=== PATIENT | male | born 1980 | race Hispanic/Latino ===

== ENCOUNTER 2021-09-14 15:19 | Inpatient (IN) | payer OTHER, BC ==
[2021-09-14] MEDS ORDERED: Promethazine HCl 25 MG/ML VIAL IM PRN (16:53)
[2021-09-14] MEDS ORDERED: hydrALAZINE 20 MG/ML VIAL SLOW IVP PRN (16:53)
[2021-09-14 18:41] VITALS: BMI 44.9
[2021-09-14] MEDS ORDERED: traMADol HCl 50 MG TAB PO PRN (20:24)
[2021-09-14] MEDS ORDERED: Ketorolac Tromethamine 30 MG/ML VIAL IVP SCH (20:30)
[2021-09-14] MEDS ORDERED: Fentanyl 100 MCG/2 ML VIAL SLOW IVP SCH (20:30)
[2021-09-14] MEDS ORDERED: Pregabalin 50 MG CAP PO SCH (21:00)
[2021-09-14] MEDS ORDERED: Gabapentin 300 MG CAP PO SCH (21:00)
[2021-09-14] MEDS ORDERED: Famotidine/PF 20 mg/2ml Vial SLOW IVP SCH (21:00)
[2021-09-14] MEDS: Acetaminophen 500 MG TAB PO SCH ×2 (21:01→22:55)
[2021-09-14] MEDS: Sodium Chloride 0.9% 1,000 ML IV SCH (21:07)
[2021-09-14] MEDS: Gabapentin 300 MG CAP PO SCH (21:27)
[2021-09-14] MEDS: traMADol HCl 50 MG TAB PO SCH (23:00)
[2021-09-14] MEDS: Ketorolac Tromethamine 30 MG/ML VIAL IVP SCH (23:00)
[2021-09-15] MEDS: Morphine 2 MG/ML VIAL SLOW IVP PRN ×5 (00:57→19:16)
[2021-09-15 04:03] LABS: #Basophils 0.1 thou/uL (0.0-0.2); #Lymphocytes 1.4 thou/uL (1.20-3.40); #Monocytes 0.9 thou/uL (0.11-0.59); %Basophils 0.6 % (0.0-1.0); %Eosinophils 0.1 % (0.0-10.0); %Lymphocytes 11.1 % (21.0-51.0); %Monocytes 7.6 % (0.0-10.0); %Neutrophils 80.6 % (42.0-75.0); Hemoglobin 13.7 g/dL (14.0-18.0); Mean Corpuscular HGB CONC 33.1 g/dL (32.0-36.0); Mean Corpuscular Hemoglobin 32.7 pg (27.0-31.0); Mean Corpuscular Volume 98.9 fL (78.0-98.0); Platelet Count 249 thou/uL (130-400); RBC Distribution Width 12.1 % (11.5-14.5); Red Blood Cell (RBC) Count 4.19 mill/uL (4.70-6.10); White Blood Cell (WBC) Count 12.4 thou/uL (4.8-10.8)
[2021-09-15 04:15] LABS: Prothrombin Time 13.7 sec (12.0-14.7)
[2021-09-15 04:16] LABS: PTT 34.6 sec (22.9-36.1)
[2021-09-15 04:25] LABS: Anion Gap 9 mmol/L (10-20); BUN (Urea Nitrogen) 16 mg/dL (8.9-20.6); Calc. Creatinine Clearance 218 mL/min (70-130); Calcium 8.1 mg/dL (7.8-10.44); Carbon Dioxide 24 mmol/L (22-29); Chloride 108 mmol/L (98-107); Glucose 111 mg/dL (70-105); Potassium 4.2 mmol/L (3.5-5.1); Sodium 137 mmol/L (136-145)
[2021-09-15] MEDS: Acetaminophen 500 MG TAB PO SCH (04:53)
[2021-09-15] MEDS: Sodium Chloride 0.9% 1,000 ML IV SCH ×2 (04:54→12:17)
[2021-09-15] MEDS: traMADol HCl 50 MG TAB PO SCH (04:55)
[2021-09-15] MEDS: Ketorolac Tromethamine 30 MG/ML VIAL IVP SCH ×3 (05:00→17:28)
[2021-09-15] MEDS ORDERED: PHOS-NAK 1 PKT PACK PO SCH (07:45)
[2021-09-15] MEDS ORDERED: Acetaminophen/Codeine 30-300mg Tablet PO PRN (08:09)
[2021-09-15] MEDS: Gabapentin 300 MG CAP PO SCH ×3 (09:05→20:03)
[2021-09-15] MEDS: OXcarbazepine 300 MG TAB PO SCH ×2 (09:05→20:03)
[2021-09-15] MEDS: Enoxaparin Sodium 40 MG/0.4 ML SYRINGE SC SCH ×2 (09:05→20:04)
[2021-09-15] MEDS: Escitalopram Oxalate 20 mg Tablet PO SCH (09:07)
[2021-09-15] MEDS: Famotidine 20 MG TAB PO SCH ×2 (09:07→20:04)
[2021-09-15] MEDS: Acetaminophen 325 MG TAB PO SCH ×2 (12:00→17:27)
[2021-09-15] MEDS: Cyclobenzaprine 10 MG TAB PO PRN (19:16)
[2021-09-15] MEDS: Acetaminophen/Codeine 30-300mg Tablet PO PRN (21:04)
[2021-09-16] MEDS: Ketorolac Tromethamine 30 MG/ML VIAL IVP SCH (00:06)
[2021-09-16] MEDS: Morphine 2 MG/ML VIAL SLOW IVP PRN ×2 (00:06→05:11)
[2021-09-16] MEDS: Acetaminophen 325 MG TAB PO SCH ×4 (00:07→17:05)
[2021-09-16 04:00] LABS: #Basophils 0.1 thou/uL (0.0-0.2); #Eosinphils 0.1 thou/uL (0.0-0.7); #Lymphocytes 2.1 thou/uL (1.20-3.40); #Monocytes 0.7 thou/uL (0.11-0.59); #Neutrophils 5.1 thou/uL (1.40-6.50); %Basophils 0.6 % (0.0-1.0); %Eosinophils 1.3 % (0.0-10.0); %Lymphocytes 25.5 % (21.0-51.0); %Neutrophils 63.5 % (42.0-75.0); Mean Corpuscular HGB CONC 32.8 g/dL (32.0-36.0); Mean Corpuscular Hemoglobin 33.1 pg (27.0-31.0); Mean Platelet Volume 7.8 fL (7.4-10.4); Platelet Count 181 thou/uL (130-400); RBC Distribution Width 11.9 % (11.5-14.5); Red Blood Cell (RBC) Count 3.92 mill/uL (4.70-6.10); White Blood Cell (WBC) Count 8.1 thou/uL (4.8-10.8)
[2021-09-16 04:25] LABS: Anion Gap 9 mmol/L (10-20); BUN (Urea Nitrogen) 14 mg/dL (8.9-20.6); Calc. Creatinine Clearance 242 mL/min (70-130); Calcium 8.2 mg/dL (7.8-10.44); Carbon Dioxide 24 mmol/L (22-29); Chloride 107 mmol/L (98-107); Glucose 87 mg/dL (70-105); Magnesium 2.1 mg/dL (1.6-2.6); Phosphorus 3.6 mg/dL (2.3-4.7); Sodium 136 mmol/L (136-145)
[2021-09-16] MEDS: Acetaminophen/Codeine 30-300mg Tablet PO PRN ×3 (04:29→21:34)
[2021-09-16] MEDS: Cyclobenzaprine 10 MG TAB PO PRN (04:29)
[2021-09-16] MEDS ORDERED: PHOS-NAK 1 PKT PACK PO SCH (07:15)
[2021-09-16] MEDS: Enoxaparin Sodium 40 MG/0.4 ML SYRINGE SC SCH ×2 (08:23→20:49)
[2021-09-16] MEDS: OXcarbazepine 300 MG TAB PO SCH ×2 (08:23→20:50)
[2021-09-16] MEDS: Famotidine 20 MG TAB PO SCH ×2 (08:23→20:49)
[2021-09-16] MEDS: Gabapentin 300 MG CAP PO SCH ×2 (08:23→14:08)
[2021-09-16] MEDS: Escitalopram Oxalate 20 mg Tablet PO SCH (08:23)
[2021-09-16] MEDS ORDERED: Cyclobenzaprine 10 MG TAB PO SCH (09:00)
[2021-09-16] MEDS: METAXALONE 800 MG PO PRN (16:30)
[2021-09-16] MEDS: Ibuprofen 200 MG TAB PO PRN (19:42)
[2021-09-16] MEDS: Pregabalin 50 MG CAP PO SCH (20:49)
[2021-09-16] MEDS: Senokot S 8.6-50 MG TAB PO SCH (20:49)
[2021-09-17] MEDS: METAXALONE 800 MG PO PRN ×3 (00:17→17:25)
[2021-09-17] MEDS: Acetaminophen 325 MG TAB PO SCH ×4 (00:17→17:26)
[2021-09-17] MEDS: Acetaminophen/Codeine 30-300mg Tablet PO PRN ×3 (04:01→17:32)
[2021-09-17] MEDS ORDERED: Cyclobenzaprine 10 MG TAB PO SCH (09:00)
[2021-09-17] MEDS ORDERED: Polyethylene Glycol 3350 17 GM Packet PO SCH (09:00)
[2021-09-17] MEDS ORDERED: Morphine 4 MG/ML VIAL SLOW IVP PRN (09:11)
[2021-09-17] MEDS: Enoxaparin Sodium 40 MG/0.4 ML SYRINGE SC SCH (09:27)
[2021-09-17] MEDS: Pregabalin 50 MG CAP PO SCH (09:27)
[2021-09-17] MEDS: Escitalopram Oxalate 20 mg Tablet PO SCH (09:29)
[2021-09-17] MEDS: Famotidine 20 MG TAB PO SCH (09:29)
[2021-09-17] MEDS: Senokot S 8.6-50 MG TAB PO SCH (09:29)
[2021-09-17] MEDS: Ibuprofen 200 MG TAB PO PRN (09:29)
[2021-09-17] MEDS: OXcarbazepine 300 MG TAB PO SCH (09:38)
[2021-09-17 11:21] VITALS: TEMP 97.1
[2021-09-17 12:43] LABS: SARS-CoV-2 NAA Rapid Test Not Detected (NotDetected)
[2021-09-17 17:25] VITALS: BP 133/86
== END 2021-09-17 19:18 | DRG 53 ==
LOC: CCU 16:47
PROVIDERS: ADMIT Surgery; ATTEND Surgery
DX: S14.124A Central cord syndrome at C4 level of cervical spinal cord, initial encounter (principal); W11.XXXA Fall on and from ladder, initial encounter; Z20.822 Contact with and (suspected) exposure to COVID-19; M41.9 Scoliosis, unspecified; M19.91 Primary osteoarthritis, unspecified site; F43.10 Post-traumatic stress disorder, unspecified; M51.36 Other intervertebral disc degeneration, lumbar region; Y92.34 Swimming pool (public) as the place of occurrence of the external cause; Z98.890 Other specified postprocedural states; Z79.899 Other long term (current) drug therapy
CPT/HCPCS: 36415; 72141; 72146; 80048; 83735; 84100; 85025; 85610; 85730; 86850; 86900; 86901; J1650; J1885; J2270; J3010; J7050; S0028; U0002

== ENCOUNTER 2021-11-16 10:48 | Inpatient (IN) | payer BC ==
[2021-11-16 14:46] LABS: #Basophils 0.1 thou/uL (0.0-0.2); #Eosinphils 0.1 thou/uL (0.0-0.7); #Lymphocytes 2.1 thou/uL (1.20-3.40); #Monocytes 0.7 thou/uL (0.11-0.59); #Neutrophils 7.1 thou/uL (1.40-6.50); %Basophils 0.8 % (0.0-1.0); %Eosinophils 0.9 % (0.0-10.0); %Lymphocytes 20.9 % (21.0-51.0); %Neutrophils 70.5 % (42.0-75.0); Hemoglobin 13.6 g/dL (14.0-18.0); Mean Corpuscular Hemoglobin 32.5 pg (27.0-31.0); Mean Corpuscular Volume 98.2 fL (78.0-98.0); Mean Platelet Volume 6.9 fL (7.4-10.4); Platelet Count 368 thou/uL (130-400); Red Blood Cell (RBC) Count 4.18 mill/uL (4.70-6.10)
[2021-11-16 15:18] LABS: ALT (SGPT) 35 U/L (8-55); AST (SGOT) 19 U/L (5-34); Albumin 4.2 g/dL (3.5-5.0); Alkaline Phosphatase 116 U/L (40-110); Anion Gap 14 mmol/L (10-20); BUN (Urea Nitrogen) 12 mg/dL (8.9-20.6); Bilirubin, Total 0.4 mg/dL (0.2-1.2); CK (CPK) 68 U/L (30-200); Calc. Creatinine Clearance 0 mL/min (70-130); Calcium 9.8 mg/dL (7.8-10.44); Carbon Dioxide 28 mmol/L (22-29); Chloride 102 mmol/L (98-107); Estimated GFR 112; Globulin 3.3 g/dL (2.4-3.5); Glucose 94 mg/dL (70-105); Potassium 4.2 mmol/L (3.5-5.1); Protein, Total 7.5 g/dL (6.0-8.3); Sodium 140 mmol/L (136-145)
[2021-11-16 16:30] LABS: Bilirubin Negative (Negative); Blood, Urine Negative (Negative); Clarity Clear (Clear); Glucose, Urine (Dipstick) Normal (Negative); Ketone, Urine Negative (Negative); Leukocyte Negative Leu/uL (Negative); Nitrite Negative (Negative); Protein, Urine (Dipstick) Negative (Neg-Trace); Specific Gravity, Urine 1.006 (1.002-1.036); Urobilinogen Normal mg/dL (Less than 2); pH, Urine 7.5 (5.0-9.0)
[2021-11-16] MEDS ORDERED: Ondansetron PF 4 MG/2 ML Vial IVP PRN (20:36)
[2021-11-16] MEDS ORDERED: Acetaminophen 650 MG Suppository PR PRN (20:36)
[2021-11-16] MEDS ORDERED: Ondansetron ODT 4 MG TAB PO PRN (20:36)
[2021-11-17] MEDS ORDERED: VANCOMYCIN 1.25 GM/250 ML BAG 1.25 GM in Premix Bag 1 BAG IVPB SCH (02:00)
[2021-11-17] MEDS ORDERED: cefTRIAXone\\ROCEPHIN 2 GM in Sodium Chloride 0.9% 100 ML IVPB SCH (02:00)
[2021-11-17 05:12] LABS: #Eosinphils 0.1 thou/uL (0.0-0.7); #Lymphocytes 1.3 thou/uL (1.20-3.40); #Monocytes 0.7 thou/uL (0.11-0.59); #Neutrophils 8.1 thou/uL (1.40-6.50); %Basophils 0.2 % (0.0-1.0); %Eosinophils 0.6 % (0.0-10.0); %Lymphocytes 12.6 % (21.0-51.0); %Monocytes 6.4 % (0.0-10.0); %Neutrophils 80.3 % (42.0-75.0); Hemoglobin 13.6 g/dL (14.0-18.0); Mean Corpuscular HGB CONC 33.6 g/dL (32.0-36.0); Mean Corpuscular Hemoglobin 32.8 pg (27.0-31.0); Mean Corpuscular Volume 97.7 fL (78.0-98.0); Mean Platelet Volume 7.1 fL (7.4-10.4); Platelet Count 359 thou/uL (130-400); Red Blood Cell (RBC) Count 4.14 mill/uL (4.70-6.10); White Blood Cell (WBC) Count 10.1 thou/uL (4.8-10.8)
[2021-11-17 05:29] LABS: Anion Gap 14 mmol/L (10-20); BUN (Urea Nitrogen) 16 mg/dL (8.9-20.6); Calc. Creatinine Clearance 204 mL/min (70-130); Calcium 9.8 mg/dL (7.8-10.44); Carbon Dioxide 26 mmol/L (22-29); Chloride 103 mmol/L (98-107); Estimated GFR 106; Glucose 116 mg/dL (70-105); Potassium 4.4 mmol/L (3.5-5.1); Sodium 139 mmol/L (136-145)
[2021-11-17] MEDS ORDERED: HYDROcodone/Acetaminophen 10/325 mg Tablet PO PRN (05:55)
[2021-11-17] MEDS ORDERED: Non-Formulary Item 1 EACH (Pregabalin [Lyrica] 300 MG Capsule) PO SCH (09:00)
[2021-11-17] MEDS ORDERED: Non-Formulary Item 1 EACH (Pantoprazole Sodium [Protonix] 20 MG Tablet.Dr) PO SCH (09:00)
[2021-11-17] MEDS ORDERED: Cetirizine HCl 10 MG TAB PO SCH (09:00)
[2021-11-17] MEDS ORDERED: OXCARBAZEPINE 600 MG PO SCH (09:00)
[2021-11-17] MEDS: OXcarbazepine 300 MG TAB PO SCH ×2 (09:16→22:13)
[2021-11-17] MEDS: Escitalopram Oxalate 20 mg Tablet PO SCH (09:16)
[2021-11-17] MEDS: Docusate 100 MG CAP PO SCH ×2 (09:16→22:14)
[2021-11-17] MEDS: Pregabalin 75 MG CAP PO SCH ×2 (09:17→22:14)
[2021-11-17] MEDS: Enoxaparin Sodium 40 MG/0.4 ML SYRINGE SC SCH (09:20)
[2021-11-17] MEDS: Loratadine 10 MG TAB PO SCH (09:20)
[2021-11-17] MEDS: Dicyclomine 10 MG CAP PO SCH ×3 (09:20→18:02)
[2021-11-17] MEDS: Topiramate 25 MG TAB PO SCH ×3 (09:22→22:14)
[2021-11-17] MEDS ORDERED: Magnevist 469MG/ML 20 ML VIAL ONE ×2 (11:55)
[2021-11-17] MEDS ORDERED: VANCOMYCIN 2 GRAM/500 ML BAG 2 GM in Premix Bag 1 BAG IVPB SCH (12:00)
[2021-11-17] MEDS ORDERED: Non-Formulary Item 1 EACH (Tizanidine Hcl [Tizanidine Hcl] 4 MG Capsule) PO SCH (21:00)
[2021-11-17] MEDS: Clindamycin 150 MG CAP PO SCH (21:55)
[2021-11-17] MEDS: Dexamethasone 4 MG TAB PO SCH (21:55)
[2021-11-17] MEDS: Baclofen 10 MG TAB PO SCH (22:13)
[2021-11-17] MEDS: clonazePAM 0.5 MG TAB PO SCH (22:13)
[2021-11-17] MEDS: tiZANidine HCl 4 MG TAB PO SCH (22:14)
[2021-11-18 06:59] LABS: #Eosinphils 0.1 thou/uL (0.0-0.7); #Lymphocytes 1.2 thou/uL (1.20-3.40); #Monocytes 0.3 thou/uL (0.11-0.59); #Neutrophils 5.2 thou/uL (1.40-6.50); %Basophils 0.5 % (0.0-1.0); %Lymphocytes 17.4 % (21.0-51.0); %Monocytes 4.9 % (0.0-10.0); %Neutrophils 76.3 % (42.0-75.0); Hemoglobin 14.3 g/dL (14.0-18.0); Mean Corpuscular HGB CONC 33.4 g/dL (32.0-36.0); Mean Corpuscular Hemoglobin 33.3 pg (27.0-31.0); Mean Corpuscular Volume 99.6 fL (78.0-98.0); Mean Platelet Volume 5.5 fL (7.4-10.4); Platelet Count 329 thou/uL (130-400); Red Blood Cell (RBC) Count 4.29 mill/uL (4.70-6.10); White Blood Cell (WBC) Count 6.9 thou/uL (4.8-10.8)
[2021-11-18 07:13] LABS: Anion Gap 14 mmol/L (10-20); BUN (Urea Nitrogen) 21 mg/dL (8.9-20.6); Calc. Creatinine Clearance 223 mL/min (70-130); Calcium 9.5 mg/dL (7.8-10.44); Carbon Dioxide 26 mmol/L (22-29); Chloride 104 mmol/L (98-107); Estimated GFR 113; Glucose 110 mg/dL (70-105); Potassium 4.6 mmol/L (3.5-5.1); Sodium 139 mmol/L (136-145)
[2021-11-18] MEDS: Clindamycin 150 MG CAP PO SCH ×3 (09:34→21:12)
[2021-11-18] MEDS: Dexamethasone 4 MG TAB PO SCH ×3 (09:34→21:12)
[2021-11-18] MEDS: Enoxaparin Sodium 40 MG/0.4 ML SYRINGE SC SCH (09:35)
[2021-11-18] MEDS: Dicyclomine 10 MG CAP PO SCH ×3 (09:50→18:40)
[2021-11-18] MEDS: Docusate 100 MG CAP PO SCH ×2 (09:51→21:14)
[2021-11-18] MEDS: Escitalopram Oxalate 20 mg Tablet PO SCH (09:51)
[2021-11-18] MEDS: Pregabalin 75 MG CAP PO SCH ×2 (09:51→21:15)
[2021-11-18] MEDS: OXcarbazepine 300 MG TAB PO SCH ×2 (09:51→21:14)
[2021-11-18] MEDS: Loratadine 10 MG TAB PO SCH (09:51)
[2021-11-18] MEDS: Topiramate 25 MG TAB PO SCH ×2 (09:52→21:15)
[2021-11-18] MEDS: clonazePAM 0.5 MG TAB PO SCH (21:14)
[2021-11-18] MEDS: Baclofen 10 MG TAB PO SCH (21:14)
[2021-11-18] MEDS: tiZANidine HCl 4 MG TAB PO SCH (21:15)
[2021-11-19] MEDS: Clindamycin 150 MG CAP PO SCH ×3 (09:19→20:27)
[2021-11-19] MEDS: Enoxaparin Sodium 40 MG/0.4 ML SYRINGE SC SCH (09:20)
[2021-11-19] MEDS: Dexamethasone 4 MG TAB PO SCH ×3 (09:20→20:27)
[2021-11-19] MEDS: Dicyclomine 10 MG CAP PO SCH ×3 (09:43→18:53)
[2021-11-19] MEDS: Docusate 100 MG CAP PO SCH ×2 (09:43→21:17)
[2021-11-19] MEDS: OXcarbazepine 300 MG TAB PO SCH ×2 (09:44→21:18)
[2021-11-19] MEDS: Escitalopram Oxalate 20 mg Tablet PO SCH (09:44)
[2021-11-19] MEDS: Loratadine 10 MG TAB PO SCH (09:44)
[2021-11-19] MEDS: Pregabalin 75 MG CAP PO SCH ×2 (09:44→21:19)
[2021-11-19] MEDS: Topiramate 25 MG TAB PO SCH ×2 (09:45→21:20)
[2021-11-19 11:51] LABS: #Lymphocytes 1.3 thou/uL (1.20-3.40); #Monocytes 0.5 thou/uL (0.11-0.59); #Neutrophils 5.7 thou/uL (1.40-6.50); %Basophils 0.6 % (0.0-1.0); %Eosinophils 0.4 % (0.0-10.0); %Lymphocytes 17.6 % (21.0-51.0); %Monocytes 6.2 % (0.0-10.0); %Neutrophils 75.2 % (42.0-75.0); Hemoglobin 13.3 g/dL (14.0-18.0); Mean Corpuscular HGB CONC 32.4 g/dL (32.0-36.0); Mean Corpuscular Hemoglobin 32.1 pg (27.0-31.0); Mean Platelet Volume 7.5 fL (7.4-10.4); Platelet Count 333 thou/uL (130-400); RBC Distribution Width 12.2 % (11.5-14.5); Red Blood Cell (RBC) Count 4.13 mill/uL (4.70-6.10); White Blood Cell (WBC) Count 7.6 thou/uL (4.8-10.8)
[2021-11-19 12:08] LABS: Anion Gap 15 mmol/L (10-20); BUN (Urea Nitrogen) 20 mg/dL (8.9-20.6); Calc. Creatinine Clearance 250 mL/min (70-130); Calcium 9.1 mg/dL (7.8-10.44); Carbon Dioxide 25 mmol/L (22-29); Chloride 107 mmol/L (98-107); Estimated GFR 117; Glucose 116 mg/dL (70-105); Potassium 3.9 mmol/L (3.5-5.1); Sodium 143 mmol/L (136-145)
[2021-11-19] MEDS: Baclofen 10 MG TAB PO SCH (21:16)
[2021-11-19] MEDS: clonazePAM 0.5 MG TAB PO SCH (21:16)
[2021-11-19] MEDS: tiZANidine HCl 4 MG TAB PO SCH (21:19)
[2021-11-20] MEDS: Clindamycin 150 MG CAP PO SCH ×3 (09:23→20:46)
[2021-11-20] MEDS: Enoxaparin Sodium 40 MG/0.4 ML SYRINGE SC SCH (09:23)
[2021-11-20] MEDS: Dexamethasone 4 MG TAB PO SCH ×3 (09:24→20:47)
[2021-11-20] MEDS: Dicyclomine 10 MG CAP PO SCH (19:39)
[2021-11-20] MEDS: Docusate 100 MG CAP PO SCH ×2 (19:39→20:56)
[2021-11-20] MEDS: OXcarbazepine 300 MG TAB PO SCH ×2 (19:40→20:57)
[2021-11-20] MEDS: Escitalopram Oxalate 20 mg Tablet PO SCH (19:40)
[2021-11-20] MEDS: Pregabalin 75 MG CAP PO SCH ×2 (19:40→20:57)
[2021-11-20] MEDS: Topiramate 25 MG TAB PO SCH ×2 (19:41→20:57)
[2021-11-20] MEDS: Baclofen 10 MG TAB PO SCH (20:56)
[2021-11-20] MEDS: clonazePAM 0.5 MG TAB PO SCH (20:56)
[2021-11-20] MEDS: tiZANidine HCl 4 MG TAB PO SCH (20:57)
[2021-11-21] MEDS: Dexamethasone 4 MG TAB PO SCH ×3 (09:02→21:17)
[2021-11-21] MEDS: Clindamycin 150 MG CAP PO SCH ×3 (09:02→21:17)
[2021-11-21] MEDS: Enoxaparin Sodium 40 MG/0.4 ML SYRINGE SC SCH (09:03)
[2021-11-21] MEDS: Topiramate 25 MG TAB PO SCH ×2 (09:40→22:10)
[2021-11-21] MEDS: Escitalopram Oxalate 20 mg Tablet PO SCH (09:40)
[2021-11-21] MEDS: OXcarbazepine 300 MG TAB PO SCH ×2 (09:40→22:06)
[2021-11-21] MEDS: Loratadine 10 MG TAB PO SCH ×2 (09:40→22:59)
[2021-11-21] MEDS: Dicyclomine 10 MG CAP PO SCH ×3 (09:40→18:00)
[2021-11-21] MEDS: Docusate 100 MG CAP PO SCH ×2 (09:40→22:06)
[2021-11-21] MEDS: Pregabalin 75 MG CAP PO SCH ×2 (09:40→22:10)
[2021-11-21] MEDS ORDERED: OLANZapine 2.5 MG TAB PO SCH (15:00)
[2021-11-21] MEDS: OLANZapine 2.5 MG TAB PO SCH (21:16)
[2021-11-21] MEDS: Baclofen 10 MG TAB PO SCH (22:05)
[2021-11-21] MEDS: clonazePAM 0.5 MG TAB PO SCH (22:05)
[2021-11-21] MEDS: tiZANidine HCl 4 MG TAB PO SCH (22:10)
[2021-11-22] MEDS: Enoxaparin Sodium 40 MG/0.4 ML SYRINGE SC SCH (08:46)
[2021-11-22] MEDS: Clindamycin 150 MG CAP PO SCH ×3 (08:46→21:02)
[2021-11-22] MEDS: Dexamethasone 4 MG TAB PO SCH ×3 (08:46→21:03)
[2021-11-22] MEDS: Acetaminophen 325 MG TAB PO PRN ×3 (08:46→21:00)
[2021-11-22] MEDS: OLANZapine 2.5 MG TAB PO SCH ×2 (08:47→21:02)
[2021-11-22] MEDS: Docusate 100 MG CAP PO SCH ×2 (15:20→22:34)
[2021-11-22] MEDS: Escitalopram Oxalate 20 mg Tablet PO SCH (15:20)
[2021-11-22] MEDS: Dicyclomine 10 MG CAP PO SCH (15:20)
[2021-11-22] MEDS: Loratadine 10 MG TAB PO SCH (15:21)
[2021-11-22] MEDS: OXcarbazepine 300 MG TAB PO SCH ×2 (15:21→22:35)
[2021-11-22] MEDS: Pregabalin 75 MG CAP PO SCH ×2 (15:21→22:35)
[2021-11-22] MEDS: Topiramate 25 MG TAB PO SCH ×2 (15:22→22:35)
[2021-11-22] MEDS: Baclofen 10 MG TAB PO SCH (22:34)
[2021-11-22] MEDS: clonazePAM 0.5 MG TAB PO SCH (22:34)
[2021-11-22] MEDS: tiZANidine HCl 4 MG TAB PO SCH (22:35)
[2021-11-23] MEDS: Acetaminophen 325 MG TAB PO PRN ×2 (07:21→21:14)
[2021-11-23] MEDS: Clindamycin 150 MG CAP PO SCH ×3 (10:19→21:15)
[2021-11-23] MEDS: OLANZapine 2.5 MG TAB PO SCH ×2 (10:19→21:15)
[2021-11-23] MEDS: Dexamethasone 4 MG TAB PO SCH ×3 (10:20→21:15)
[2021-11-23] MEDS: Enoxaparin Sodium 40 MG/0.4 ML SYRINGE SC SCH (10:20)
[2021-11-23] MEDS: Escitalopram Oxalate 20 mg Tablet PO SCH (11:25)
[2021-11-23] MEDS: Dicyclomine 10 MG CAP PO SCH ×4 (11:25→17:40)
[2021-11-23] MEDS: Docusate 100 MG CAP PO SCH ×2 (11:25→20:34)
[2021-11-23] MEDS: Pregabalin 75 MG CAP PO SCH ×2 (11:26→20:34)
[2021-11-23] MEDS: Loratadine 10 MG TAB PO SCH (11:26)
[2021-11-23] MEDS: OXcarbazepine 300 MG TAB PO SCH ×2 (11:26→20:34)
[2021-11-23] MEDS: Topiramate 25 MG TAB PO SCH ×2 (11:27→20:35)
[2021-11-23] MEDS ORDERED: Ibuprofen 600 MG TAB PO PRN (12:33)
[2021-11-23] MEDS ORDERED: Ibuprofen 800 MG TAB PO SCH (12:45)
[2021-11-23] MEDS ORDERED: Ibuprofen 200 MG TAB PO PRN (12:54)
[2021-11-23] MEDS ORDERED: Ibuprofen 200 MG TAB PO SCH (13:00)
[2021-11-23] MEDS: clonazePAM 0.5 MG TAB PO SCH (20:34)
[2021-11-23] MEDS: Baclofen 10 MG TAB PO SCH (20:34)
[2021-11-23] MEDS: tiZANidine HCl 4 MG TAB PO SCH (20:35)
[2021-11-24] MEDS: Enoxaparin Sodium 40 MG/0.4 ML SYRINGE SC SCH (08:41)
[2021-11-24] MEDS: Dexamethasone 4 MG TAB PO SCH ×3 (08:41→21:21)
[2021-11-24] MEDS: OLANZapine 2.5 MG TAB PO SCH ×2 (08:42→21:21)
[2021-11-24] MEDS: Clindamycin 150 MG CAP PO SCH ×3 (08:42→21:20)
[2021-11-24] MEDS: Acetaminophen 325 MG TAB PO PRN ×3 (08:43→21:19)
[2021-11-24] MEDS: Dicyclomine 10 MG CAP PO SCH ×3 (09:36→19:44)
[2021-11-24] MEDS: Loratadine 10 MG TAB PO SCH (09:37)
[2021-11-24] MEDS: Docusate 100 MG CAP PO SCH ×2 (09:37→19:45)
[2021-11-24] MEDS: Escitalopram Oxalate 20 mg Tablet PO SCH (09:37)
[2021-11-24] MEDS: OXcarbazepine 300 MG TAB PO SCH ×2 (09:37→19:45)
[2021-11-24] MEDS: Topiramate 25 MG TAB PO SCH ×2 (09:38→19:46)
[2021-11-24] MEDS: Pregabalin 75 MG CAP PO SCH ×2 (09:38→19:45)
[2021-11-24] MEDS: Baclofen 10 MG TAB PO SCH (19:44)
[2021-11-24] MEDS: clonazePAM 0.5 MG TAB PO SCH (19:44)
[2021-11-24] MEDS: tiZANidine HCl 4 MG TAB PO SCH (19:45)
[2021-11-25] MEDS: Acetaminophen 325 MG TAB PO PRN ×4 (03:49→20:41)
[2021-11-25] MEDS: Clindamycin 150 MG CAP PO SCH ×3 (08:21→20:41)
[2021-11-25] MEDS: Dexamethasone 4 MG TAB PO SCH ×3 (08:21→20:42)
[2021-11-25] MEDS: Enoxaparin Sodium 40 MG/0.4 ML SYRINGE SC SCH (08:21)
[2021-11-25] MEDS: OLANZapine 2.5 MG TAB PO SCH ×2 (08:22→20:42)
[2021-11-25] MEDS: Escitalopram Oxalate 20 mg Tablet PO SCH (08:24)
[2021-11-25] MEDS: Dicyclomine 10 MG CAP PO SCH ×3 (08:24→17:23)
[2021-11-25] MEDS: Docusate 100 MG CAP PO SCH ×2 (08:24→20:45)
[2021-11-25] MEDS: Loratadine 10 MG TAB PO SCH (08:24)
[2021-11-25] MEDS: Pregabalin 75 MG CAP PO SCH ×2 (08:25→20:45)
[2021-11-25] MEDS: Topiramate 25 MG TAB PO SCH ×2 (08:25→20:46)
[2021-11-25] MEDS: OXcarbazepine 300 MG TAB PO SCH ×2 (08:25→20:45)
[2021-11-25] MEDS: clonazePAM 0.5 MG TAB PO SCH (20:45)
[2021-11-25] MEDS: Baclofen 10 MG TAB PO SCH (20:45)
[2021-11-25] MEDS: tiZANidine HCl 4 MG TAB PO SCH (20:46)
[2021-11-26] MEDS: Acetaminophen 325 MG TAB PO PRN ×4 (04:33→20:41)
[2021-11-26] MEDS: Dexamethasone 4 MG TAB PO SCH ×3 (09:16→20:41)
[2021-11-26] MEDS: Clindamycin 150 MG CAP PO SCH ×3 (09:16→20:41)
[2021-11-26] MEDS: OLANZapine 2.5 MG TAB PO SCH ×2 (09:18→20:41)
[2021-11-26] MEDS: Enoxaparin Sodium 40 MG/0.4 ML SYRINGE SC SCH (09:20)
[2021-11-26] MEDS: Dicyclomine 10 MG CAP PO SCH ×3 (13:43→18:30)
[2021-11-26] MEDS: OXcarbazepine 300 MG TAB PO SCH ×2 (13:46→21:10)
[2021-11-26] MEDS: Loratadine 10 MG TAB PO SCH (13:46)
[2021-11-26] MEDS: Escitalopram Oxalate 20 mg Tablet PO SCH (13:46)
[2021-11-26] MEDS: Docusate 100 MG CAP PO SCH ×2 (13:46→21:10)
[2021-11-26] MEDS: Pregabalin 75 MG CAP PO SCH ×2 (13:47→21:10)
[2021-11-26] MEDS: Topiramate 25 MG TAB PO SCH ×2 (13:47→21:11)
[2021-11-26] MEDS ORDERED: Magnevist 469MG/ML 20 ML VIAL ONE ×2 (14:45)
[2021-11-26 14:51] VITALS: BMI 41.3
[2021-11-26] MEDS: clonazePAM 0.5 MG TAB PO SCH (21:10)
[2021-11-26] MEDS: Baclofen 10 MG TAB PO SCH (21:10)
[2021-11-26] MEDS: tiZANidine HCl 4 MG TAB PO SCH (21:11)
[2021-11-27] MEDS: Acetaminophen 325 MG TAB PO PRN ×4 (02:36→21:23)
[2021-11-27] MEDS: Enoxaparin Sodium 40 MG/0.4 ML SYRINGE SC SCH (09:49)
[2021-11-27] MEDS: Dexamethasone 4 MG TAB PO SCH ×3 (09:50→21:23)
[2021-11-27] MEDS: Clindamycin 150 MG CAP PO SCH ×3 (09:50→21:23)
[2021-11-27] MEDS: OLANZapine 2.5 MG TAB PO SCH ×2 (09:58→22:08)
[2021-11-27] MEDS: Dicyclomine 10 MG CAP PO SCH ×3 (10:01→22:14)
[2021-11-27] MEDS: Docusate 100 MG CAP PO SCH ×2 (10:01→22:14)
[2021-11-27] MEDS: Loratadine 10 MG TAB PO SCH (10:02)
[2021-11-27] MEDS: Escitalopram Oxalate 20 mg Tablet PO SCH (10:02)
[2021-11-27] MEDS: OXcarbazepine 300 MG TAB PO SCH ×2 (10:03→22:15)
[2021-11-27] MEDS: Topiramate 25 MG TAB PO SCH ×2 (10:03→22:16)
[2021-11-27] MEDS: Pregabalin 75 MG CAP PO SCH ×2 (10:03→22:15)
[2021-11-27] MEDS: clonazePAM 0.5 MG TAB PO SCH (22:14)
[2021-11-27] MEDS: Baclofen 10 MG TAB PO SCH (22:14)
[2021-11-27] MEDS: tiZANidine HCl 4 MG TAB PO SCH (22:15)
[2021-11-28] MEDS: Acetaminophen 325 MG TAB PO PRN ×4 (06:03→20:28)
[2021-11-28] MEDS: Enoxaparin Sodium 40 MG/0.4 ML SYRINGE SC SCH (09:46)
[2021-11-28] MEDS: Dexamethasone 4 MG TAB PO SCH ×3 (09:46→20:20)
[2021-11-28] MEDS: OLANZapine 2.5 MG TAB PO SCH ×2 (09:47→20:20)
[2021-11-28] MEDS: Dicyclomine 10 MG CAP PO SCH ×3 (16:03→18:27)
[2021-11-28] MEDS: Escitalopram Oxalate 20 mg Tablet PO SCH (16:04)
[2021-11-28] MEDS: OXcarbazepine 300 MG TAB PO SCH ×2 (16:04→21:48)
[2021-11-28] MEDS: Loratadine 10 MG TAB PO SCH (16:04)
[2021-11-28] MEDS: Docusate 100 MG CAP PO SCH ×2 (16:04→21:48)
[2021-11-28] MEDS: Pregabalin 75 MG CAP PO SCH ×2 (16:05→21:48)
[2021-11-28] MEDS: Topiramate 25 MG TAB PO SCH ×2 (16:06→21:49)
[2021-11-28] MEDS ORDERED: Lidocaine 5% Patch TD PRN (17:05)
[2021-11-28] MEDS ORDERED: Transdermal Patch Removal TOP PRN (17:21)
[2021-11-28] MEDS: Baclofen 10 MG TAB PO SCH (21:47)
[2021-11-28] MEDS: tiZANidine HCl 4 MG TAB PO SCH (21:48)
[2021-11-29] MEDS: Acetaminophen 325 MG TAB PO PRN ×4 (03:13→15:24)
[2021-11-29] MEDS: Dexamethasone 4 MG TAB PO SCH ×3 (09:08→20:55)
[2021-11-29] MEDS: OLANZapine 2.5 MG TAB PO SCH ×2 (09:08→20:55)
[2021-11-29] MEDS: Enoxaparin Sodium 40 MG/0.4 ML SYRINGE SC SCH (09:08)
[2021-11-29] MEDS: OXcarbazepine 300 MG TAB PO SCH ×2 (09:09→23:34)
[2021-11-29] MEDS: Loratadine 10 MG TAB PO SCH (09:09)
[2021-11-29] MEDS: Escitalopram Oxalate 20 mg Tablet PO SCH (09:09)
[2021-11-29] MEDS: Pregabalin 75 MG CAP PO SCH ×2 (09:12→23:36)
[2021-11-29] MEDS: Docusate 100 MG CAP PO SCH ×2 (09:13→23:34)
[2021-11-29] MEDS: Dicyclomine 10 MG CAP PO SCH ×3 (09:13→15:21)
[2021-11-29] MEDS: Topiramate 25 MG TAB PO SCH ×2 (09:14→23:35)
[2021-11-29] MEDS ORDERED: OLANZapine 2.5 MG TAB PO SCH ×2 (13:48→14:00)
[2021-11-29] MEDS: Acetaminophen 500 MG TAB PO SCH ×2 (18:16→20:56)
[2021-11-29] MEDS: Baclofen 10 MG TAB PO SCH (23:34)
[2021-11-29] MEDS: tiZANidine HCl 4 MG TAB PO SCH (23:35)
[2021-11-30] MEDS: Acetaminophen 500 MG TAB PO SCH ×4 (08:47→21:52)
[2021-11-30] MEDS: OLANZapine 2.5 MG TAB PO SCH ×2 (08:47→21:52)
[2021-11-30] MEDS: Dexamethasone 4 MG TAB PO SCH ×3 (08:47→21:52)
[2021-11-30] MEDS: Enoxaparin Sodium 40 MG/0.4 ML SYRINGE SC SCH (08:49)
[2021-11-30] MEDS: Loratadine 10 MG TAB PO SCH (08:51)
[2021-11-30] MEDS: Docusate 100 MG CAP PO SCH (08:51)
[2021-11-30] MEDS: Dicyclomine 10 MG CAP PO SCH ×3 (08:51→17:43)
[2021-11-30] MEDS: Escitalopram Oxalate 20 mg Tablet PO SCH (08:51)
[2021-11-30] MEDS: Topiramate 25 MG TAB PO SCH (08:52)
[2021-11-30] MEDS: OXcarbazepine 300 MG TAB PO SCH (08:52)
[2021-11-30] MEDS: Pregabalin 75 MG CAP PO SCH (08:52)
[2021-12-01] MEDS: Baclofen 10 MG TAB PO SCH (01:03)
[2021-12-01] MEDS: tiZANidine HCl 4 MG TAB PO SCH (01:03)
[2021-12-01] MEDS: OXcarbazepine 300 MG TAB PO SCH ×2 (01:03→09:19)
[2021-12-01] MEDS: Docusate 100 MG CAP PO SCH ×2 (01:03→09:19)
[2021-12-01] MEDS: Pregabalin 75 MG CAP PO SCH ×2 (01:03→09:20)
[2021-12-01] MEDS: Topiramate 25 MG TAB PO SCH ×2 (01:04→09:20)
[2021-12-01 06:17] LABS: ALT (SGPT) 64 U/L (8-55); AST (SGOT) 22 U/L (5-34); Albumin 3.8 g/dL (3.5-5.0); Alkaline Phosphatase 109 U/L (40-110); Anion Gap 13 mmol/L (10-20); BUN (Urea Nitrogen) 23 mg/dL (8.9-20.6); Bilirubin, Total 0.2 mg/dL (0.2-1.2); Calc. Creatinine Clearance 247 mL/min (70-130); Calcium 8.9 mg/dL (7.8-10.44); Carbon Dioxide 25 mmol/L (22-29); Chloride 107 mmol/L (98-107); Estimated GFR 119; Globulin 2.5 g/dL (2.4-3.5); Glucose 109 mg/dL (70-105); Potassium 4.6 mmol/L (3.5-5.1); Protein, Total 6.3 g/dL (6.0-8.3); Sodium 140 mmol/L (136-145)
[2021-12-01] MEDS: Acetaminophen 500 MG TAB PO SCH ×4 (09:15→21:06)
[2021-12-01] MEDS: OLANZapine 2.5 MG TAB PO SCH ×2 (09:16→21:06)
[2021-12-01] MEDS: Enoxaparin Sodium 40 MG/0.4 ML SYRINGE SC SCH (09:16)
[2021-12-01] MEDS: Dexamethasone 4 MG TAB PO SCH ×3 (09:16→21:06)
[2021-12-01] MEDS: Loratadine 10 MG TAB PO SCH (09:19)
[2021-12-01] MEDS: Dicyclomine 10 MG CAP PO SCH ×3 (09:19→17:36)
[2021-12-01] MEDS: Escitalopram Oxalate 20 mg Tablet PO SCH (09:19)
[2021-12-02] MEDS: Pregabalin 75 MG CAP PO SCH ×3 (01:05→21:09)
[2021-12-02] MEDS: Docusate 100 MG CAP PO SCH ×3 (01:05→21:08)
[2021-12-02] MEDS: Baclofen 10 MG TAB PO SCH ×2 (01:05→21:08)
[2021-12-02] MEDS: OXcarbazepine 300 MG TAB PO SCH ×3 (01:05→21:09)
[2021-12-02] MEDS: Topiramate 25 MG TAB PO SCH ×3 (01:06→21:10)
[2021-12-02] MEDS: tiZANidine HCl 4 MG TAB PO SCH ×2 (01:06→21:09)
[2021-12-02 06:24] LABS: Hemoglobin 13.8 g/dL (14.0-18.0); Platelet Count 199 thou/uL (130-400)
[2021-12-02] MEDS: OLANZapine 2.5 MG TAB PO SCH ×2 (09:09→21:07)
[2021-12-02] MEDS: Acetaminophen 500 MG TAB PO SCH ×4 (09:09→21:06)
[2021-12-02] MEDS: Enoxaparin Sodium 40 MG/0.4 ML SYRINGE SC SCH (09:09)
[2021-12-02] MEDS: Dexamethasone 4 MG TAB PO SCH ×3 (09:10→21:06)
[2021-12-02] MEDS: Dicyclomine 10 MG CAP PO SCH ×3 (09:49→18:52)
[2021-12-02] MEDS: Escitalopram Oxalate 20 mg Tablet PO SCH (09:49)
[2021-12-02] MEDS: Loratadine 10 MG TAB PO SCH (09:49)
[2021-12-02] MEDS ORDERED: Silver Sulfadiazine 50 GM TUBE TOP SCH (21:00)
[2021-12-03 05:59] LABS: ALT (SGPT) 150 U/L (8-55); AST (SGOT) 34 U/L (5-34); Albumin 3.7 g/dL (3.5-5.0); Alkaline Phosphatase 119 U/L (40-110); Anion Gap 12 mmol/L (10-20); BUN (Urea Nitrogen) 22 mg/dL (8.9-20.6); Bilirubin, Total 0.2 mg/dL (0.2-1.2); Calc. Creatinine Clearance 247 mL/min (70-130); Calcium 8.8 mg/dL (7.8-10.44); Carbon Dioxide 28 mmol/L (22-29); Chloride 104 mmol/L (98-107); Estimated GFR 119; Globulin 2.4 g/dL (2.4-3.5); Glucose 118 mg/dL (70-105); Potassium 4.5 mmol/L (3.5-5.1); Protein, Total 6.1 g/dL (6.0-8.3); Sodium 139 mmol/L (136-145)
[2021-12-03] MEDS ORDERED: traMADol HCl 50 MG TAB PO PRN (08:08)
[2021-12-03] MEDS ORDERED: Dexamethasone 4 MG TAB PO SCH (09:30)
[2021-12-03] MEDS: Enoxaparin Sodium 40 MG/0.4 ML SYRINGE SC SCH (09:44)
[2021-12-03] MEDS: OLANZapine 2.5 MG TAB PO SCH ×2 (09:44→20:35)
[2021-12-03] MEDS: Loratadine 10 MG TAB PO SCH (09:52)
[2021-12-03] MEDS: Docusate 100 MG CAP PO SCH ×2 (09:52→20:34)
[2021-12-03] MEDS: Dicyclomine 10 MG CAP PO SCH ×3 (09:52→18:33)
[2021-12-03] MEDS: OXcarbazepine 300 MG TAB PO SCH ×2 (09:52→20:35)
[2021-12-03] MEDS: Escitalopram Oxalate 20 mg Tablet PO SCH (09:52)
[2021-12-03] MEDS: Topiramate 25 MG TAB PO SCH ×2 (09:53→20:36)
[2021-12-03] MEDS: Pregabalin 75 MG CAP PO SCH ×2 (09:53→20:35)
[2021-12-03] MEDS: Dexamethasone 4 MG TAB PO SCH ×2 (10:31→17:58)
[2021-12-03] MEDS: Baclofen 10 MG TAB PO SCH (20:34)
[2021-12-03] MEDS: tiZANidine HCl 4 MG TAB PO SCH (20:35)
[2021-12-04 07:00] LABS: ALT (SGPT) 112 U/L (8-55); AST (SGOT) 20 U/L (5-34); Albumin 3.7 g/dL (3.5-5.0); Alkaline Phosphatase 105 U/L (40-110); Anion Gap 14 mmol/L (10-20); BUN (Urea Nitrogen) 24 mg/dL (8.9-20.6); Bilirubin, Total 0.3 mg/dL (0.2-1.2); Calc. Creatinine Clearance 241 mL/min (70-130); Calcium 8.9 mg/dL (7.8-10.44); Carbon Dioxide 27 mmol/L (22-29); Chloride 104 mmol/L (98-107); Estimated GFR 118; Globulin 2.5 g/dL (2.4-3.5); Glucose 107 mg/dL (70-105); Potassium 4.2 mmol/L (3.5-5.1); Protein, Total 6.2 g/dL (6.0-8.3); Sodium 141 mmol/L (136-145)
[2021-12-04] MEDS: Enoxaparin Sodium 40 MG/0.4 ML SYRINGE SC SCH (08:14)
[2021-12-04] MEDS: Dexamethasone 4 MG TAB PO SCH ×2 (08:15→17:58)
[2021-12-04] MEDS: OLANZapine 2.5 MG TAB PO SCH ×2 (08:15→19:59)
[2021-12-04] MEDS: Docusate 100 MG CAP PO SCH ×2 (08:19→22:35)
[2021-12-04] MEDS: Dicyclomine 10 MG CAP PO SCH ×3 (08:19→17:58)
[2021-12-04] MEDS: OXcarbazepine 300 MG TAB PO SCH ×2 (08:19→22:35)
[2021-12-04] MEDS: Escitalopram Oxalate 20 mg Tablet PO SCH (08:19)
[2021-12-04] MEDS: Loratadine 10 MG TAB PO SCH (08:19)
[2021-12-04] MEDS: Pregabalin 75 MG CAP PO SCH ×2 (08:20→22:36)
[2021-12-04] MEDS: Topiramate 25 MG TAB PO SCH ×2 (08:20→22:36)
[2021-12-04] MEDS: Baclofen 10 MG TAB PO SCH (22:35)
[2021-12-04] MEDS: tiZANidine HCl 4 MG TAB PO SCH (22:36)
[2021-12-05] MEDS: Enoxaparin Sodium 40 MG/0.4 ML SYRINGE SC SCH (09:46)
[2021-12-05] MEDS: Docusate 100 MG CAP PO SCH ×2 (09:47→20:30)
[2021-12-05] MEDS: Dexamethasone 4 MG TAB PO SCH ×2 (09:47→18:42)
[2021-12-05] MEDS: Dicyclomine 10 MG CAP PO SCH ×3 (09:47→18:43)
[2021-12-05] MEDS: Escitalopram Oxalate 20 mg Tablet PO SCH (09:48)
[2021-12-05] MEDS: Loratadine 10 MG TAB PO SCH (09:48)
[2021-12-05] MEDS: Topiramate 25 MG TAB PO SCH ×2 (09:49→20:32)
[2021-12-05] MEDS: OXcarbazepine 300 MG TAB PO SCH ×2 (09:49→20:31)
[2021-12-05] MEDS: Pregabalin 75 MG CAP PO SCH ×2 (09:49→20:31)
[2021-12-05] MEDS: OLANZapine 2.5 MG TAB PO SCH ×2 (09:53→20:30)
[2021-12-05] MEDS: Baclofen 10 MG TAB PO SCH (20:30)
[2021-12-05] MEDS: tiZANidine HCl 4 MG TAB PO SCH (20:32)
[2021-12-06] MEDS: OLANZapine 2.5 MG TAB PO SCH ×2 (08:02→21:25)
[2021-12-06] MEDS: Enoxaparin Sodium 40 MG/0.4 ML SYRINGE SC SCH (08:02)
[2021-12-06] MEDS: Dexamethasone 4 MG TAB PO SCH ×2 (08:02→16:46)
[2021-12-06] MEDS: Dicyclomine 10 MG CAP PO SCH ×3 (08:03→17:02)
[2021-12-06] MEDS: Escitalopram Oxalate 20 mg Tablet PO SCH (08:03)
[2021-12-06] MEDS: Docusate 100 MG CAP PO SCH ×2 (08:03→22:28)
[2021-12-06] MEDS: OXcarbazepine 300 MG TAB PO SCH ×2 (08:04→22:28)
[2021-12-06] MEDS: Topiramate 25 MG TAB PO SCH ×2 (08:04→22:30)
[2021-12-06] MEDS: Pregabalin 75 MG CAP PO SCH ×2 (08:04→22:28)
[2021-12-06] MEDS: Loratadine 10 MG TAB PO SCH (08:04)
[2021-12-06] MEDS: Baclofen 10 MG TAB PO SCH (22:28)
[2021-12-06] MEDS: tiZANidine HCl 4 MG TAB PO SCH (22:30)
[2021-12-07] MEDS: Dexamethasone 4 MG TAB PO SCH (08:45)
[2021-12-07] MEDS: Enoxaparin Sodium 40 MG/0.4 ML SYRINGE SC SCH (08:45)
[2021-12-07] MEDS: OLANZapine 2.5 MG TAB PO SCH (08:45)
[2021-12-07] MEDS: Dicyclomine 10 MG CAP PO SCH ×2 (08:48→13:18)
[2021-12-07] MEDS: Loratadine 10 MG TAB PO SCH (08:49)
[2021-12-07] MEDS: Docusate 100 MG CAP PO SCH (08:49)
[2021-12-07] MEDS: Pregabalin 75 MG CAP PO SCH (08:49)
[2021-12-07] MEDS: OXcarbazepine 300 MG TAB PO SCH (08:49)
[2021-12-07] MEDS: Escitalopram Oxalate 20 mg Tablet PO SCH (08:49)
[2021-12-07] MEDS: Topiramate 25 MG TAB PO SCH (08:50)
[2021-12-07 14:53] VITALS: BP 106/49; TEMP 98.5
== END 2021-12-07 15:00 | DRG 92 ==
LOC: ERS 10:48 → NEURO 19:01 → OBSVTOIN 11-17 10:56 → SURG B 11-19 22:20
PROVIDERS: ADMIT Hospitalist; ATTEND Hospitalist
DX: G96.09 Other spinal cerebrospinal fluid leak (principal); G95.89 Other specified diseases of spinal cord; Z68.41 Body mass index [BMI] 40.0-44.9, adult; R51.9 Headache, unspecified; Z20.822 Contact with and (suspected) exposure to COVID-19; F17.210 Nicotine dependence, cigarettes, uncomplicated; E66.01 Morbid (severe) obesity due to excess calories; F31.9 Bipolar disorder, unspecified; R39.81 Functional urinary incontinence; Z28.21 Immunization not carried out because of patient refusal; Z79.899 Other long term (current) drug therapy; Z98.890 Other specified postprocedural states
CPT/HCPCS: 36415; 70450; 70551; 70552; 72125; 72141; 72142; 72156; 72157; 80048; 80053; 81003; 82550; 83605; 84145; 84443; 84484; 85014; 85018; 85025; 85049; 85652; 86140; 87040; 93005; 96372; A9579; G0378; J1650; J8540; U0003; U0005